=== PATIENT | female | born 2005 | race Caucasian/White ===

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

== ENCOUNTER 2023-04-30 14:59 | Outpatient (REF) | payer MEDICAID, SELFPAY ==
--- OUTSIDE RECORDS SUMMARY | 2023-04-30 15:02 | XMS_ITS | Continuity of Care Document ---
Author Name Unknown Address [address] [place] [address] Phone [facility] Address [address] [place] [address] Phone Care Team Providers Care Plug Making Operator Name Role Phone NADEEN Ascencio Primary Care Provider UNKNOWN Attending Provider Unavailable PRISCILLA Ace Attending Provider [phone] SUZE Arias Attending Provider Unavail able Care Teams Patient Care Team Team Status: Active Member Role Status Giovanni Ascencio NP Primary Care Provider Active Visit Care Team Team Status: Active Member Role Status Giovanni Ascencio NP Primary Care Provider Active UNKNOWN Attending Provider Active Visit Care Team Team Status: Active Member Role Status Giovanni Ascencio NP Primary Care Provider Active Renetta Ace APRN Attending Provider Active Patient Care Team Team Status: Active Member Role Status Giovanni Ascencio NP Primary Care Provider Active SUZE Agosto Attending Provider Active Patient Care Team Team Status: Inactive Member Role Status Giovanni Ascencio UNDERLAY STITCHER Primary Care Provider, Referring Provid er Active Renetta Ace APRN Attending Provider Active Chief Complaint and Reason for Visit Chief Complaint Amb Documentation contraceptive management Allergies, Adverse Reactions, Alerts Allergen Type Severity Reaction Last Updated Verified Status amoxicillin Allergy Moderate Unknown November 11, 2022 1:10pm Ye s Active Bee Stings Allergy Moderate swelling November 11, 2022 2:08pm Ye katy Active Social History Smoking Status Status Start Date End Date Date of Observa tion Unknown if ever smoked Augus t 2022 1:21pm Additional Data Assigned Sex Female Problems Active Problems Medical Problem Onset Date Status PTSD (post-traumatic stress disorder) Active Contraception management Active Menorrhagia Active Nevus Active Anxiety Active Depression Active Eating disorder Active Pruritic rash Active Asthma Active Inactive/Resolved Problems Medical Problem Onset Date Status Nexplanon removal Resolved Suicidal ideation Resolved Medications Medication Status Dose Units Route Directions Qty Days St art Date End Date Instructions Ferrous Sulfate Active 325 MG PO daily October 30, 2022 12:00am Albuterol Sulfate Active 2 PUFF INHALATIO N Q6H October 30, 2022 12:00am Cetirizine Active 10 MG PO daily October 30, 2022 12:00am Escitalopram Oxalate Active 20 MG PO daily October 30, 2022 12:00am Vital Signs Vital Reading Result Reference Range Collection Date/Time Height 67 [in_i] November 11 1:18pm Weight 125.00 [lb_av] November 11, 2022 1:18pm Body Temperature 97.7 [degF] 97.6-99.6 October 1:18pm Heart Rate 95 /min 60-100 November 11 1:18pm Oxygen saturation by Pulse oximetry 98 % 92-100 November 11, 2022 1:18pm BP Systolic 108 mm[Hg] 90-130 November 11 1:18pm BP Diastolic 75 mm[Hg] 70-80 November 11 1:18pm BMI (Body Mass Index) 19.5 kg/m2 November 11, 2022 1:18pm Body mass index (BMI) [Percentile] Per age and sex 21.5 % Normal or healthy weight; 5th to 85th percentile November 11, 2022 1:18pm Insurance Providers Guarantor ANASTASIIA COLVIN Address [address] [place] [address] Contact Info. Home Phone: Payer Policy Id Coverage Id Subscriber's Name Subscriber Id Effective Date Expiration Date [place] [id number] ANASTASIIA COLVIN [id number] Encounters Encounter Location(s) Arrival/Admit Date Discharge/Depart Date Provider(s) Non-patient / Non-visit [facility] October 28, 2022 11:59pm Unknown Non-patient / Non-visit [facility] Nonvisit October 30, 2022 1:45pm Renetta Ace MS APRN Non-patient / Non-visit [facility] Nonvisit October 30, 2022 1:52pm null Departed Physician/Prov ider Office Visit [facility] November 11, 2022 12:49pm November 11, 2022 2:14pm Renetta Ace MS APRN Plan of Treatment Future Tests Future scheduled test information is unavailable Pending Tests Pending diagnostic test information is unavailable Future Visits Future appointment information is unavailable Referrals to Other Providers Reason for Referral Referral Start Date Provider Provider Contact Information Provider Address Z30.9 - Encounter for contraceptive management, unspecified October 30, 2022 Renetta Ace MS APRN Work Phone: [address] [address] Future Procedures Future procedure information is unavailable Future Medications Future medication information is unavailable Patient Instructions Patient instructions are unavailable
--- OUTSIDE RECORDS SUMMARY | 2023-04-30 15:02 | XMS_ITS | Continuity of Care Document ---
Author Name Unknown Address [address] [place] [address] Phone [facility] Address [address] [place] [address] Phone Care Team Providers Care Die Maker Bench Stamping Name Role Phone NADEEN Ascencio Primary Care Provider UNKNOWN Attending Provider Unavailable PRISCILLA Ace Attending Provider [phone] SUZE Arias Attending Provider Unavail able Care Teams Patient Care Team Team Status: Active Member Role Status Giovanni Ascencio NP Primary Care Provider Active Patient Care Team Team Status: Active Member Role Status Giovanni Ascencio NP Primary Care Provider Active Renetta Ace APRN Attending Provider Active Visit Care Team Team Status: Active Member Role Status Giovanni Ascencio NP Primary Care Provider Active UNKNOWN Attending Provider Active Visit Care Team Team Status: Active Member Role Status Giovanni Ascencio NP Primary Care Provider Active Renetta Ace APRN Attending Provider Active Visit Care Team Team Status: Active Member Role Status Giovanni Ascencio NP Primary Care Provider Active SUZE Agosto Attending Provider Active Visit Care Team Team Status: Inactive Member Role Status Giovanni Ascencio NP Primary Care Provider, Referring Provid er Active Renetta Ace APRN Attending Provider Active Patient Care Team Team Status: Inactive Member Role Status Giovanni Ascencio NP Primary Care Provider, Referring Provid er Active Renetta Ace APRN Attending Provider Active Chief Complaint and Reason for Visit Chief Complaint Amb Documentation contraceptive management PLACEMENT OF IUD Reason for Visit Contraception manage ment Dysmenorrhea in adolescent Allergies, Adverse Reactions, Alerts Allergen Type Severity Reaction Last Updated Verified Status amoxicillin Allergy Moderate Unknown December 01, 2022 7:56am Yes Active Bee Stings Allergy Moderate swelling December 01, 2022 7:56am Yes Active Social History Smoking Status Status Start Date End Date Date of Observa tion Unknown if ever smoked Galina hoffman 2022 7:56am Observation Status Observation Response Date of Response alcohol intake current November 11 2:46pm Additional Data Assigned Sex Female Problems Active Problems Medical Problem Onset Date Status PTSD (post-traumatic stress disorder) Active Contraception management Active Encounter for screening for infections with a predominantly sexual mode of transmission Active Menorrhagia Active Nevus Active Anxiety Active Depression Active Eating disorder Active Dysmenorrhea in adolescent Activ e Pruritic rash Active Asthma Active Inactive/Resolved Problems [...] to 85th percentile November 11, 2022 1:18pm Height 67 [in_i] December 01, 2022 9:28am Weight 127.00 [lb_av] November 9:28am Body Temperature 98.4 [degF] 97.6-99.6 December 012022 9:28am Heart Rate 78 /min 60-100 December 01, 2022 9:28am Oxygen saturation by Pulse oximetry 98 % 92-100 December 01, 2022 9:28am BP Systolic 110 mm[Hg] 90-130 December 01, 2022 9:28am BP Diastolic 70 mm[Hg] 70-80 December 01, 2022 9:28am BMI (Body Mass Index) 19.8 kg/m2 2022 9:28am Body mass index (BMI) [Percentile] Per age and sex 25.3 % Normal or healthy weight; 5th to 85th percentile December 01, 2022 9:28am Advance Directives Advance Directive Response Recorded Date/ Time Advance Directives No November 11, 2022 2:46pm Insurance Providers Guarantor ANASTASIIA COLVIN Address [address] [place] [place] [id number] Contact Info. Home Phone: Payer Policy Id Coverage Id Subscriber's Name Subscriber Id Effective Date Expiration Date [place] [id number] ANASTASIIA COLVIN [id number] Encounters Encounter Location(s) Arrival/Admit Date Discharge/Depart Date Provider(s) Non-patient / Non-visit [facility] October 28, 2022 11:59pm Unknown Non-patient / Non-visit [facility] Nonvisit October 30, 2022 1:45pm Renetta Ace MS APRN Non-patient / Non-visit [facility] Nonvisit October 30, 2022 1:52pm null Departed Physician/Provi tony Office Visit [facility] Primary Care Ltn - NonRHC November 11, 2022 12:49pm November 11, 2022 2:14pm Renetta Ace MS APRN Departed Physician/Provi tony Office Visit [facility] December 01, 2022 9:23am December 01, 2022 10:13am Renetta Ace MS APRN Registered Referred [facility] December 01, 2022 9:39am Renetta Ace MS APRN Recent Diagnosis Onset Date Contraception management Dysmenorrhea in adolescent Assessments Diagnosis Onset Date Resolution Status Contraception management acu te Dysmenorrhea in adolescent n oneactive Plan of Treatment Author Renetta Ace [facility] Authored November 11, 2022 4: 10pm Pt is here for review of her contraceptive options after she recently had a Nexplanon placed and then removed soon after due to complaints of BTB the whole time she had it in.THe bleeding irregularity resolved after the Nexplanon was taken out. Her LMP was November 02 WN, Heavy, painful. She is here iwth her mom today and is mainly interested in an IUD. We reviewed the available styles of IUDs and the efficacy, potential side effects and the procedure for placement. Pt thinks she would like eeither the Mary or the Kyleena. The longer duration of Mirena is attractive to her, but pt unsure. We will have PA done for all of these. Her cycles are heavy and painful but she mainly wants solid contraception to avoid . Pt reports she is in stable relationship and they do not want until they are and have a home. PT will set up appt for IUD placement during menses. I suggest avoiding coitus for 2 wk before. We will do urine HCG before she has it placed. Encouraged intake of calcium and magnesium. Pre-medicate or the IUD placement with Aleve with a meal. IT is best performed during her cycle. She will set up an appt. We have deferred the exam until the IUD placement date. Future Tests Future scheduled test information is unavailable Pending Tests Test Name Ordered Date Scheduled Date Chlamydia trachomatis DNA (TEE) December 01 9:39am Neisseria gonorrhoeae DNA (TEE) December 01 9:39am Chlamydia Trach/Neisseria December 01, 2022 9: 39am December 01, 2022 9:39am Future Visits Future appointment information is unavailable Referrals to Other Providers Referral information is unavailable Future Procedures Procedure Name Ordered Date Scheduled Date Kyleena IUD December 01, 2022 9:23am Future Medications Future medication information is unavailable Patient Instructions Patient instructions are unavailable
--- OUTSIDE RECORDS SUMMARY | 2023-04-30 15:02 | XMS_ITS | Continuity of Care Document ---
Author Name Unknown Address [address] [place] [address] Phone [facility] Pract[facility] Address [address] [place] [address] Phone Care Team Providers Care Compressed Yeast Supervisor Name Role Phone NADEEN Ascencio Primary Care Provider UNKNOWN Attending Provider Unavailable PRISCILLA Ace Attending Provider Care Teams Patient Care Team Team Status: Active Member Role Status Dates Sun Ascencio , COMMERCIAL RELATIONSHIP MANAGER Primary Care Provider Active Patient Care Team Team Status: Active Member Role Status Dates Sun Ascencio COMMERCIAL RELATIONSHIP MANAGER Primary Care Provider Active UNKNOWN Attending Provider Active Patient Care Team Team Status: Active Member Role Status Dates Sun Ascencio , COMMERCIAL RELATIONSHIP MANAGER Primary Care Provider Active Renetta Ace APRN Attending Provider Active Social History Smoking Status Unknown if ever smoked Additional Data Assigned Sex Female Insurance Providers Guarantor ANASTASIIA COLVIN Address [address] [place] [id number] Contact Info. Home Phone: Payer Policy Id Coverage Id Subscriber's Name Subscriber Id Effective Date Expiration Date [place] [id number] ANASTASIIA COLVIN [id number] Encounters Encounter Location(s) Arrival/Admit Date Discharge/Depart Date Provider(s) Non-patient / Non-visit [facility] October 28, 2022 11:59pm Unknown Non-patient / Non-visit [facility] Nonvisit October 30, 2022 1:45pm Renetta Ace MS APRN Plan of Treatment Future Tests Future scheduled test information is unavailable Pending Tests Pending diagnostic test information is unavailable Future Visits Future appointment information is unavailable Referrals to Other Providers Reason for Referral Referral Start Date Provider Provider Contact Information Provider Address Z30.9 - Encounter for contraceptive management, unspecified October 30, 2022 Renetta Ace , MS AQUATIC DIRECTOR Work Phone: [address] [facility] [address] [facility] [address] Future Procedures Future procedure information is unavailable Future Medications Future medication information is unavailable Patient Instructions Patient instructions are unavailable Hospital Discharge Instructions Ambulatory Orders* Gynecology Referral Time Frame: 1 Week, Location: None Selected
--- OUTSIDE RECORDS SUMMARY | 2023-04-30 15:02 | XMS_ITS | Continuity of Care Document ---
Author Name Unknown Address [address] [place] [address] Phone [facility] Address [address] [place] [address] Phone Care Team Providers Care Stitcher Set Up Operator Automatic Name Role Phone NADEEN Ascencio Primary Care Provider UNKNOWN Attending Provider Unavailable PRISCILLA Ace Attending Provider SUZE Arias Attending Provider Unavail able Care Teams Patient Care Team Team Status: Active Member Role Status Giovanni Ascencio NP Primary Care Provider Active Visit Care Team Team Status: Inactive Member Role Status Giovanni Ascencio DIRECTOR [employer] Primary Care Provider, Referring Provid er Active [...] Amb Documentation contraceptive management PLACEMENT OF IUD LABS Reason for Visit Contraception manage ment Dysmenorrhea in adolescent Allergies, Adverse Reactions, Alerts Allergen Type Severity Reaction Last Updated Verified Status amoxicillin Allergy Moderate Unknown December 01, 2022 7:56am Yes Active Bee Stings Allergy Moderate swelling December 01, 2022 7:56am Yes Active Social History Smoking Status Status Start Date End Date Date of Observa tion Unknown if ever smoked Galina mullerer 2022 7:56am Observation Status Observation Response Date [...] 9:28am BMI (Body Mass Index) 19.8 kg/m2 Sept2022 9:28am Body mass index (BMI) [Percentile] Per age and sex 25.3 % Normal or healthy weight; 5th to 85th percentile December 01, 2022 9:28am Advance Directives Advance Directive Response Recorded Date/ Time Advance Directives No November 11, 2022 2:46pm Insurance Providers Guarantor ANASTASIIA COLVIN Address [address] [place] [id number] Contact Info. Home Phone: Payer Policy Id Coverage Id Subscriber's Name Subscriber Id Effective Date Expiration Date [place] [id number] ANASTASIIA COLVIN [id number] Encounters Encounter Location(s) Arrival/Admit Date Discharge/Depart Date Provider(s) Non-patient / Non-visit [facility] October 28, 2022 11:59pm Unknown Non-patient / Non-visit [facility] Nonvisit October 30, 2022 1:45pm Renetta Ace MS APRN Non-patient / Non-visit [facility] Nonvisit October 30, 2022 1:52pm null Departed Physician/Prov ider Office Visit [facility] Primary Care Ltn - NonRHC November 11, 2022 12:49pm November 11, 2022 2:14pm Renetta Ace MS APRN Departed Physician/Prov ider Office Visit [facility] December 01, 2022 9:23am December 01, 2022 10:13am Renetta Ace MS APRN Departed Referred [facility] December 01, 2022 9:39am December 01, 2022 9:40am Renetta Ace MS APRN Recent Diagnosis Onset Date Contraception management Dysmenorrhea in adolescent Assessments Diagnosis Onset Date Resolution Status Contraception management acu te Dysmenorrhea in adolescent n oneactive Plan of Treatment Author Renetta [facility] Authored November 11, 2022 4: 10pm Pt is here for review of her contraceptive options after she recently had a Nexplanon placed and then removed soon after due to complaints of BTB the whole time she had it in.THe bleeding irregularity resolved after the Nexplanon was taken out. Her LMP was November 02 WNL, Heavy, painful. She is here iwth her [...] Date Chlamydia trachomatis DNA (TEE) December 01 023 9:39am Neisseria gonorrhoeae DNA (TEE) December 01 023 9:39am Chlamydia Trach/Neisseria December 01, 2022 9: 39am December 01, 2022 9:39am Future Visits Future appointment information is unavailable Referrals to Other Providers Referral information is unavailable Future Procedures Future procedure information is unavailable Future Medications Future medication information is unavailable Patient Instructions Patient instructions are unavailable
--- OUTSIDE RECORDS SUMMARY | 2023-04-30 15:02 | XMS_ITS | Continuity of Care Document ---
Author Name Unknown Address [address] [place] [address] Phone [facility] Practices Address [address] [place] [address] Phone Care Team Providers Care Lan Manager Name Role Phone NADEEN Ascencio Primary Care Provider PRISCILLA Ace Attending Provider Care Teams Patient Care Team Team Status: Active Member Role Status Giovanni Ascencio NP Primary Care Provider Active Visit Care Team Team Status: Inactive Member Role Status Giovanni Ascencio NP Primary Care Provide r, Referring Provider Active Start: December 01, 2022 End: December 01, 2022 Renetta Ace APRN Attending Provider Active Start: December 01, 2022 End: December 01, 2022 Visit Care Team Team Status: Inactive Member Role Status Giovanni Ascencio NP Primary Care Provide r, Referring Provider Active Start: December 01, 2022 End: December 01, 2022 Renetta Ace APRN Attending Provider Active Start: December 01, 2022 End: December 01, 2022 Patient Care Team Team Status: Inactive Member Role Status Giovanni Ascencio NP Primary Care Provide r, Referring Provider Active Start: January 19, 2023 End: January 19, 2023 Renetta Ace APRN Attending Provider Active Start: January 19, 2023 End: January 19, 2023 Chief Complaint and Reason for Visit Chief Complaint PLACEMENT OF IUD LABS Follow Up Reason for Visit Contraception manage ment Dysmenorrhea in adolescent [id number] Allergies, Adverse Reactions, Alerts Allergen Type Severity Reaction Last Updated Verified Status amoxicillin Allergy Moderate Unknown January 19, 2023 8:14am Y es Active Bee Stings Allergy Moderate swelling January 19, 2023 8:14am Y es Active Social History Smoking Status Status Start Date End Date Date of Observa tion Unknown if ever smoked 2022 7:56am Observation Status Observation Response Date of Response alcohol intake current November 11 2:46pm Additional Data Assigned Sex Female Problems Active Problems Medical Problem Onset Date Status Encounter for insertion of p rogestin-releasing intrauterine contraceptive device (IUD) Active PTSD (post-traumatic stress disorder) Active Contraception management [...] art Date End Date Instructions Ferrous Sulfate Disconti nued 325 MG PO daily October 30, 2022 12:00am Octobe r 2022 9:02am Albuterol Sulfate Active 2 PUFF INHALAT ION Q6H October 30, 2022 12:00am Cetirizine Active 10 MG PO daily October 30, 2022 12:00am Escitalopram Oxalate Active 20 MG PO daily October 30, 2022 12:00am Relevant Diagnostic Tests and/or Laboratory Data Laboratory Results Test Date/Time Result Interpretation Reference Range Result Comment Performing Site Urine Test December 01, 2022 9:16am Negative Chlamydia trachomatis DNA (TEE) December 01, 2022 9:39am Negative Negative [facility] [id number] [facility] [address] Neisseria gonorrhoeae DNA (TEE) December 01, 2022 9:39am Negative Negative Performed at: - [facility] [address] [id number] Director: Ifrah Go MD, Phone: [phone] [facility] [id number] [address] Diagnostic Imaging Reports Author Renetta Ace [facility] Practices January 19, 2023 9:30am Report Date/Time January 19, 2023 9 :06am [address] [address] Gynecology Clinic Note 01/19/23 Patient Name: ANASTASIIA COLVIN Date of : 2005 Age: 17 F Record #: [id number] Acct: [id number] Loc: [email or web address] Visit Provider: Renetta Ace MS, SCHOOL COUNSELLOR Assessment and Plan (1) IUD surveillance: Z30.431 - Encounter for routine checking of intrauterine contraceptive device Piper presents for routine post IUD insertion follow up with Desirae placed 11/2322. She is feeling well, having her period currently that is curb hop than usual and less crampy. She denies unusual discharge, pelvic pain, unusual bleeding, fever, or dyspareunia. The IUD strings are visible and at length expected. There is no cervical tenderness or uterine tenderness. No pelvic masses. Pt advised to follow up in 1 yr or sooner if she has any concerns. Patient Details 2 Height 5 ft 7 in 01/19/23 Weight 125 lb 01/19/23 Body Mass Index (BMI) 19.5 01/19/23 History of Present Illness Follow Up Here for IUD follow up today. Periods started 2 days ago and is curb hop and not as crampy. No pain with sex. No unusual discharge. Sick with sinus congestion, infection but this has cleared now. No symptoms for 1 week now.No fever then. Had headache with it -but no fever. Denies any pelvic pain. Using curb hop tampon than had to use before IUD placement. Intake Visit reasons: Follow Up Patient type: Established Loss Prevention Manager present: no Patient : No Is this an annual exam visit?: No Is this a post-op follow-up visit?: No Fall Risk assessment done in last 365 days?: Yes Is patient in pain?: No Any recent ER or hospitalizations since last visit?: No Allergies/Adverse Reactions amoxicillin Allergy (Intermediate, Verified 01/19/23 08:14) Unknown Bee Stings Allergy (Intermediate, Verified 01/19/23 08:14) swelling Home Medications albuterol sulfate 90 mcg/actuation aerosol inhaler 2 puff inhalation Q6H PRN 10/30/22 [History Confirmed 01/19/23] cetirizine 10 mg tablet 10 mg PO DAILY PRN 10/30/22 [History Confirmed 01/19/23] escitalopram oxalate 20 mg tablet 20 mg PO DAILY 10/30/22 [History Confirmed 01/19/23] Vital Signs 3 Quality Provider Reviewed Vital Signs? Yes 01/19/23 08:57 BMI Screening normal limits 01/19/23 08:57 Vital Signs Height 5 ft 7 in 01/19/23 08:57 Weight 125 lb 01/19/23 08:57 Body Mass Index (BMI) 19.5 01/19/23 08:57 Temperature 98.2 F 01/19/23 08:57 Pulse/Heart Rate 93 01/19/23 08:57 Blood Pressure 115/70 01/19/23 08:57 O2 Sat by Pulse Oximetry 100 01/19/23 08:57 Past Patient History Active Problems (Updated 01/19/23 @ 09:27 by Renetta Ace APRN) IUD surveillance Dysmenorrhea in adolescent Menorrhagia (Acute) Contraception management (Acute) PTSD (post-traumatic stress disorder) (Acute) Eating disorder (Acute) Anxiety (Acute) Depression (Acute) Asthma (Acute) Nevus (Acute) Pruritic rash (Acute) Medical History (Updated 01/19/23 @ 09:27 by Renetta Ace APRN) Encounter for insertion of progestin-releasing intrauterine contraceptive device(IUD) Encounter for screening for infections with a predominantly sexual mode of transmission Nexplanon removal 10/01/2022 [facility] Patty Steele Suicidal ideation Social History Advance Directives: No Highest Education Level: completed high school Current Work Situation: not working Previous Workplace Exposure?: chemicals, dust and smoke Current Living Situation: Steady place to live Issues Where Currently Live?: no issues Pets/Animals Owned or Exposed: Yes Lives With: other Feels Isolated: sometimes Seatbelt Use?: always Trouble Getting to Appts/Work/Store Due to Transportation?: No Legal Issues Interfering with Health or Healthcare?: No Worried Food Would Run Out in Last Year?: No Food Bought Didn't Last and No Money to Get More in Last Yr?: No Hard Paying for Basics(food/housing/heat/medical care/meds)?: No Tobacco Use: never Second Hand Exposure: Yes Alcohol Intake: current Substance Use: never Exercise regularly?: No Hearing problems?: No Vision problems?: Yes Difficulty with: no difficulties w/ADLs Need help from others for: no help needed for IADLs Help reading?: No Well balanced Diet: about half the time Orientation: - Identity: - SDOH RESULTS: *sometimes feels isolated Female Reproductive History Age of Menarche: 10 Reported LMP: definite (NOVEMBER 02 2022 lasts about 1 wk.) - Date: November 27 2022 Symptoms since LMP: No Rash or viral illness since last menstrual period: No Period: regular Duration of menses: 3-5 days Type of flow: mild Discomfort with menses: moderate control method: none (Nexplanon was removed by her provider after just a couple months. BTB) History of Pap Smear: N/A History of colposcopy: No History 2 0 Para Full term Premature AB induced AB spontaneous Multiple births Ectopics Living Review of Systems per history of present illness Focused visit today. IUD follow up for Kyleena Placed on 12/19/22, routine. No concerns. Constitutional DENIES: chills, fever(s), headache(s) and malaise HENMT DENIES: dizziness Cardiovascular DENIES: dyspnea Respiratory DENIES: cough and dyspnea Gastrointestinal DENIES: abdominal pain, change in bowel habits and cramping Genitourinary DENIES: abnormal vaginal bleeding, oliguria, dyspareunia, pelvic pain, sexual dysfunction and vaginal discharge single partner Neurologic DENIES: dizziness and headache(s) Physical Examination Constitutional Orientation: alert General: no acute distress Nutritional Appearance: lean Limitations: none Skin Pale complexion. Pt is taking MVI. General: normal, no jaundice, pallor and no rashes noted Hair: normal Neck Neck: normal visual inspection Thyroid: thyroid normal Lymphatic: no lymphadenopathy noted Respiratory Effort and Inspection: normal respiratory effort Auscultation: clear to auscultation bilaterally Cardiovascular Rate: regular rate Rhythm: regular rhythm Gastrointestinal Scaphoid, NT Neg LSKK No masses. Palpation: normal, no guarding, no masses, no rebound tenderness, soft and nontender Genitourinary General: bladder normal to palpation External: normal exam and normal external appearance Urethra: normal appearance of the urethra and normal palpation Vagina: normal exam (tampon removed for exam. ), vaginal bleeding (menses started 01/17/23) and nontender Cervix: normal exam, normal palpation, nontender, nulliparous and IUD string seen Uterus: normal exam, consistency normal, uterine size normal and non-tender Adnexa: no masses and non-tender Neurological General: alert Coding Level of Care Code Established Pt OV, EST. TIME BASED, 20-29 MIN Total minutes spent (including non [id number] time) on DOS: 20 Patient Type Established History Expanded Problem Focused Exam Expanded Problem Focused Medical Decision Making Low Complexity Diagnoses IUD surveillance Z30.431 Recorded by: Renetta Ace MS, PRISCILLA <Electronically signed by Renetta Ace APRN> 01/19/23 [id number] CC: Sun Ascencio NP ~ Vital Signs Vital Reading Result Reference Range Collection Date/Time Height 67 [in_i] December 01, 2022 9:28am [...] to 85th percentile December 01, 2022 9:28am Height 67 [in_i] January 19, 8:57am Weight 125.00 [lb_av] January 19, 2023 8:57am Body Temperature 98.2 [degF] 97.6-99.6 December 8:57am Heart Rate 93 /min 60-100 January 19, 2 023 8:57am Oxygen saturation by Pulse oximetry 100 % 92-100 January 19, 2023 8:57am BP Systolic 115 mm[Hg] 90-130 January 19, 2 023 8:57am BP Diastolic 70 mm[Hg] 70-80 January 19, 2 023 8:57am BMI (Body Mass Index) 19.5 kg/m2 2022 8:57am Body mass index (BMI) [Percentile] Per age and sex 21.3 % Normal or healthy weight; 5th to 85th percentile January 19, 2023 8:57am Advance Directives Advance Directive Response Recorded Date/ Time Advance Directives No November 11, 2022 2:46pm Insurance Providers Guarantor ANASTASIIA COLVIN Address [address] [place] [address] Contact Info. Home Phone: Payer Policy Id Coverage Id Subscriber's Name Subscriber Id Effective Date Expiration Date [place] [id number] ANASTASIIA COLVIN [id number] Encounters Encounter Location(s) Arrival/Admit Date Discharge/Depart Date Provider(s) Departed Physician/Prov ider Office Visit [facility] December 01, 2022 9:23am December 01, 2022 10:13am Renetta Ace MS APRN Departed Referred [facility] December 01, 2022 9:39am December 01, 2022 9:40am Renetta Ace MS APRN Departed Physician/Prov ider Office Visit [facility] January 19, 2023 8:43am January 19, 2023 9:25am Renetta Ace MS APRN Recent Diagnosis Onset Date Contraception management Dysmenorrhea in adolescent [id number] Assessments Diagnosis Onset Date Resolution Status Contraception management acu te Dysmenorrhea in adolescent n oneactive [id number] noneacti ve [id number] noneactive Plan of Treatment Author Renetta Ace [facility] Authored December 02, 2022 9:13am Following informed consent, Kyleena IUD was placed without difficulty. Pt tolerated well. Removal in 5 yrs reviewed. 6 wk check advised. Take home sheet reviewed with the pt to call if pain, fever, chills, discharge, abnormal bleeding or other concerns. Urine sent for CT/NG screening. No evidence of abnormal discharge or STIs on exam. As noted. Pt may expect that the Kyleena IUD will likely lessen her menstrual flow and cramping associated with her cycle will gradually improve. Pt advised to use NSAID for cramping associated with the IUD placement which may last 1-3 days on average. If any acute pain, pt to call. As noted. Urine HCG negative. IUD placed today after discussion and informed consent about risks, benefits, side effects and duration of efficacy for her chosen method. Future Tests Future scheduled test information is unavailable Pending Tests Pending diagnostic test information is unavailable Future Visits Future appointment information is unavailable Referrals to Other Providers Referral information is unavailable Future Procedures Future procedure information is unavailable Future Medications Future medication information is unavailable Patient Instructions Patient instructions are unavailable
--- OUTSIDE RECORDS SUMMARY | 2023-04-30 15:02 | XMS_ITS | Continuity of Care Document ---
Author Name Unknown Address [address] [place] [address] Phone [facility] Practices Address [address] [place] [address] Phone Care Team Providers Care Body Former Name Role Phone NADEEN Ascencio Primary Care Provider [phone] UNKNOWN Attending Provider Unavailable PRISCILLA Ace Attending [...] Status: Inactive Member Role Status Giovanni Ascencio DESIGN STUDIO CONSULTANT Primary Care Provider, Referring Provid er Active Renetta Ace APRN Attending Provider Active Chief Complaint and Reason for Visit Chief Complaint Amb Documentation contraceptive management Reason for Visit Contraception manage ment Dysmenorrhea in adolescent Allergies, Adverse Reactions, Alerts Allergen Type Severity Reaction Last Updated Verified Status amoxicillin Allergy Moderate Unknown November 11, 2022 1:10pm Ye s Active Bee Stings Allergy Moderate swelling November 11, 2022 2:08pm Ye s Active Social History Smoking Status Status Start Date End Date Date of Observa tion Unknown if ever smoked Augus t 2022 2:46pm Observation Status Observation Response Date of Response [...] to 85th percentile November 11, 2022 1:18pm Advance Directives Advance Directive Response Recorded Date/ Time Advance Directives No November 11, 2022 2:46pm Insurance Providers Guarantor ANASTASIIA COLVIN Address [address] [facility] [address] Contact Info. Home Phone: Payer Policy Id Coverage Id Subscriber's Name Subscriber Id Effective Date Expiration Date [place] [id number] ANASTASIIA COLVIN [id number] Encounters Encounter Location(s) Arrival/Admit Date Discharge/Depart Date Provider(s) Non-patient / Non-visit [facility] October 28, 2022 11:59pm Unknown Non-patient / Non-visit [facility] Nonvisit October 30, 2022 1:45pm Renetta Ace MS APRN Non-patient / Non-visit [facility] Nonvisit October 30, 2022 1:52pm null Departed Physician/Prov ider Office Visit [facility] November 11, 2022 12:49pm November 11, 2022 2:14pm Renetta Ace MS APRN Recent Diagnosis Onset Date Contraception management Dysmenorrhea in adolescent Assessments Diagnosis Onset Date Resolution Status Contraception management acu te Dysmenorrhea in adolescent n oneactive Plan of Treatment Author Renetta Ace [facility] Authored November 11, 2022 4: 04pm Pt is here for review of her contraceptive options after she recently had a Nexplanon placed and then removed soon after due to complaints of BTB the whole time she had it in.THe bleeding irregularity resolved after the Nexplanon was taken out. Her LMP was November 02, Heavy, painful. She is here iwth her [...] until they are and have a home. Encouraged intake of calcium and magnesium. Pre-medicate [...] Date Provider Provider Contact Information Provider Address Z30.178 - Encounter for insertion of intrauterine contraceptive device November 11, 2022 Renetta Ace MS APRN Work Phone: [address] [place] [address] [address] [facility] [address] Future Procedures Future procedure information is unavailable Future Medications Future medication information is unavailable Patient Instructions Patient instructions are unavailable Hospital Discharge Instructions Ambulatory Orders* IUD Referral Location: None Selected
--- OUTSIDE RECORDS SUMMARY | 2023-04-30 15:02 | XMS_ITS | Continuity of Care Document ---
Author Name Unknown Organization [facility] Ambulatory Clinics Address [address] [place] [address] Encounter [facility] NBR [id number] Date(s): 03/29/23 - 03/29/23 [facility] Ambulatory Clinics [address] [place], [place] [address] Encounter Diagnosis Stress reaction(Discharge Diagnosis) - 03/29/23 Discharge Disposition: Home or Self Care Attending Physician: SKYE Laura Admitting Physician: SKYE Laura Allergies, Adverse Reactions, Alerts Substance Reaction Severity Status amoxicillin Unknown Active Assessment and Plan Future Scheduled Tests Laboratory* Urinalysis Dipstick Only 04/08/22 Functional Status 03/29/23 Other exposure to Infectious Disease Non e Medications AZO Cranberry Gummies 0 Refill(s) Start Date: 04/08/22 Status: Ordered cetirizine 10 mg oral tablet 0 Refill(s) Start Date: 03/29/23 Status: Ordered escitalopram 20 mg oral tablet 0 Refill(s) Start Date: 03/29/23 Status: Ordered metroNIDAZOLE 1.3% vaginal gel with applicator 1 lucio, VAG, every day at bedtime, # 5 g, 0 Refill(s), Pharmacy: [facility] #[id number] Start Date: 04/08/22 Stop Date: 04/13/22 Status: Ordered PROzac 10 mg oral capsule 10 mg = 1 cap, Oral, Daily, # 30 cap, 1 Refill(s), Pharmacy: [id number] Start Date: 05/14/22 Status: Ordered Ventolin HFA 90 mcg/inh inhalation aerosol 0 Refill(s) Start Date: 03/29/23 Status: Ordered Problem List Condition Confirmation Course Effective Dates Status Health St atus Informant Anxiety Confirmed Active PTSD (post-traumatic stress disorder) Confirmed Active Vital Signs Most recent to oldest [Reference Range]: 1 Temperature Tympanic [36.6-38.1 Deg C] 3 7.2 Deg C (03/29/23 4:08 PM) Peripheral Pulse Rate [60-100 bpm] 70 bp m (03/29/23 4:08 PM) Respiratory Rate [12-24 br/min] 17 br/mi n (03/29/23 4:08 PM) Blood Pressure [90-140/60-90 mmHg] 106/6 8mmHg (03/29/23 4:08 PM) Mean Arterial Pressure, Cuff [70-110 mmH g] 81 mmHg (03/29/23 4:08 PM) Weight 58.97 kg (03/29/23 4:08 PM) Weight Measured (lbs) 130.006 lb (03/29/23 4:08 PM) Weight Dosing 58.970 kg (03/29/23 4:08 PM) Weight Percentile 53.12 1 (03/29/23 4:08 PM) 1Result Comment: ^~:!Percentile Source -[facility] Social History Social History Type Response Tobacco Never tobacco user T obacco Use:. Sex Physician Outpatient Note * SKYE Laura: PERFORM Event Display: Office Clinic Note Physician Authored Date: [id number] ANASTASIIA COLVIN :2005 Age:17 years Sex:Female Visit Date:03/29/2023 Chief Complaint lightheaded, fatigue and disorientated for the last hour. pt states these episodes happen weekly usually when she is at work History of Present Illness Patient is having tunnel vision like symptoms only at work and only after periods of stress. ??She does not get these at home. ??Started several months ago. ??She started her new job 3 months ago.?? Intermittently 1-2 times per week. ??Usually associated with bilateral temporal headache prior.?? Not worst headache of life. ??No associated nausea vomiting or diarrhea. ??Symptoms last anywhere from10 to 20 minutes.?? No recent cough cold or flu symptoms. ??No head injury or head trauma.?? Is currently stable on Lexapro. ??Works with a counselor. Physical Exam Vitals & Measurements T:??37.2?C ??(Tympanic)?? HR:??70??(Peripheral)?? RR:??17?? BP:??106/68?? SpO2:??100%?? WT:??58.97??kg?? WT:??53.12??(Percentile)?? Well-appearing no acute distress alert and oriented x 3. ??Normal distal sensation and motor function answers my questions properly good short-term long- term recall. ??Good cognitive functioning. ??Pupils are reactive. ??Neck supple nontender. ??Heart regular rhythm. ??Abdomen soft nontender. ??Lungs clear to auscultation bilateral. Assessment/Plan 1.??Stress reaction??F43.0 Suspect this is stress reaction with anxiety. ??No??physical findings on exam today. ??Normal vitalsigns. ??Recommend continued work with counselor. Patient Instructions Verbal instructions per patient request. Problem List/Past Medical History Ongoing Anxiety PTSD (post-traumatic stress disorder) Historical No qualifying data Medications AZO Cranberry Gummies cetirizine 10 mg oral tablet escitalopram 20 mg oral tablet metroNIDAZOLE 1.3% vaginal gel with applicator, 1 lucio, Vaginal, every night at bedtime PROzac 10 mg oral capsule, 10 mg= 1 cap, Oral, Daily, 1 refills Ventolin HFA 90 mcg/inh inhalation aerosol Allergies amoxicillin Social History Electronic Cigarette/Vaping Electronic Cigarette Use: Never. Tobacco Never tobacco user Tobacco Use:. Electronically Signed on 03/29/23 04:35 PM SKYE Laura
[2023-05-01 15:41] LABS: Chlamydia Result Negative (Negative); GC Result Negative (Negative)
== END 2023-04-30 15:00 | disposition home or self-care (01) ==
LOC: NCHCN 14:59
PROVIDERS: PCP Nurse Practitioner Family; Visit Provider Nurse Practitioner Family
DX: N76.0 Acute vaginitis (principal)
CPT/HCPCS: 87491; 87591; 87480; 87510; 87660

== ENCOUNTER 2023-06-21 16:46 | Outpatient (REF) | payer MEDICAID, SELFPAY ==
[2023-06-21 20:10] LABS: HCT 34.9 % (36.0-46.0); HGB 11.5 g/dL (11.2-15.7); MCH 32.4 pg (27.0-33.0); MCV 98 fL (80-95); Platelet Count 310 10^3/uL (130-400); RBC 3.55 10^6/uL (3.93-5.22); RDW 12.6 % (11.7-14.6); RDW-SD 45.4 fL; WBC 4.13 10^3/uL (4.4-10.8)
[2023-06-21 20:25] LABS: Anion Gap 6.3 mmol/L (3-11); BUN 8 mg/dL (7-18); CO2 29.7 mmol/L (21.0-32.0); CREATININE 0.6 mg/dL (0.55-1.02); Calcium 8.6 mg/dL (8.5-10.1); Chloride 103 mmol/L (98-107); Glucose 88 mg/dL (74-106); Sodium 139 mmol/L (136-145); TSH 1.83 uIU/Ml (0.36-3.74)
[2023-06-21 20:29] LABS: Hemoglobin A1C 5.1 % (<5.7)
== END 2023-06-21 16:47 | disposition home or self-care (01) ==
LOC: NCHCN 16:46
PROVIDERS: PCP Nurse Practitioner Family; Visit Provider Nurse Practitioner Family
DX: R55 Syncope and collapse (principal)
CPT/HCPCS: 80048; 85027; 83036; 84443

== ENCOUNTER 2023-08-17 16:10 | Outpatient (REF) | payer MEDICAID, SELFPAY ==
[2023-08-17 18:49] LABS: ESR 3 mm/hr (0-20)
[2023-08-17 18:57] LABS: Iron 49 ug/dL (50-170); Total Iron Binding Capacity 342 ug/dL (250-450); Transferrin Sat 14 % (15-50)
[2023-08-17 19:07] LABS: ALT 22 U/L (14-59); AST 15 U/L (15-37); Alkaline Phosphatase 48 U/L (46-116); Anion Gap 10.4 mmol/L (3-11); BUN 10 mg/dL (7-18); Bilirubin, Total 0.5 mg/dL (0.2-1.0); CO2 27.6 mmol/L (21.0-32.0); CREATININE 0.6 mg/dL (0.55-1.02); Calcium 8.5 mg/dL (8.5-10.1); Chloride 103 mmol/L (98-107); Ferritin 60 ng/mL (8-252); Glucose 86 mg/dL (74-106); Potassium 4.2 mmol/L (3.5-5.1); Sodium 141 mmol/L (136-145); Total Protein 6.9 g/dL (6.4-8.2)
[2023-08-23 12:22] LABS: IgA 189 mg/dL (85-499); Interpretation (See Note); Tissue Transglutaminase IgA <4.0 CU (<20.0)
== END 2023-08-17 16:11 | disposition home or self-care (01) ==
LOC: NCHCN 16:10
PROVIDERS: PCP Nurse Practitioner Family; Visit Provider Nurse Practitioner Family
DX: K52.9 Noninfective gastroenteritis and colitis, unspecified (principal); R89.8 Other abnormal findings in specimens from other organs, systems and tissues; R79.89 Other specified abnormal findings of blood chemistry
CPT/HCPCS: 80053; 82784; 83516; 85652; 82728; 83540; 83550

== ENCOUNTER 2023-08-18 15:54 | Outpatient (REF) | payer MEDICAID, SELFPAY ==
[2023-08-25 21:26] LABS: Lactoferrin, Qt, Stool <6.25 mcg/mL (<7.25)
== END 2023-08-18 15:55 | disposition home or self-care (01) ==
LOC: NCHCN 15:54
PROVIDERS: PCP Nurse Practitioner Family; Visit Provider Nurse Practitioner Family
DX: K52.9 Noninfective gastroenteritis and colitis, unspecified (principal)
CPT/HCPCS: 83631

== ENCOUNTER 2024-01-03 17:30 | Outpatient (REF) | payer MEDICAID, SELFPAY ==
--- OUTSIDE RECORDS SUMMARY | 2024-01-03 17:32 | XMS_ITS | Referral Summary ---
Author Organization [facility] Address [address] [place] [address] Care Team Providers Care Band Instrument Maker Name Role Phone Unavailable Primary Care Provider Unavailabl e Social History Tobacco Use Types Packs/Day Years Used Date Smoking Tobacco: Never Assessed Sex and Gender Information Value Date Recorded Sex Assigned at Not on file Gender Identity Not on file Sexual Orientation Not on file Plan of Treatment Not on file Procedures Procedure Name Priority Date/Time Associated Diagnosis Comments HEPATITIS C AB W REFLEX TO HCV RNA BY PCR Routine 08/20/2022 15:00 EDT from Last 3 Months or Most Recently Relevant to Health Maintenance Results * HEPATITIS C AB W REFLEX TO HCV RNA BY PCR (08/20/2022 15:00 EDT) Hep C Antibody Negative Negative 08/24/2022 10:17 EDT [facility] Blood VENOUS BLOOD / Unknown 08/20/2022 15:00 EDT 08/21/2022 19:25 EDT Provider Outr Resulting Lab CHEMISTRY & BLOOD GAS ORDERABLES [facility] [address] [place] [address] from Last 3 Months or Most Recently Relevant to Health Maintenance
--- OUTSIDE RECORDS SUMMARY | 2024-01-03 17:32 | XMS_ITS | Clinical Summary ---
Author Organization [facility] Address [address] [place] [address] Care Team Providers Care Assembler Clip On Sunglasses Name Role Phone Unavailable Primary Care Provider Unavailabl e Social History Tobacco Use Types Packs/Day Years Used Date Smoking Tobacco: Never Assessed Sex and Gender Information Value Date Recorded Sex Assigned at Not on file Gender Identity Not on file Sexual Orientation Not on file Plan of Treatment Health Maintenance Due Date Last Done Comments Hepatitis B Vaccine (1 of 3 - 19+ 3-dose series) 04/07 COVID-19 Vaccine (2022- season) 2022 Hepatitis C Screen Completed 08/20/2022 Procedures Procedure Name Priority Date/Time Associated Diagnosis Comments HEPATITIS C AB W REFLEX TO HCV RNA BY PCR Routine 08/20/2022 15:00 EDT from Last 3 Months or Most Recently Relevant to Health Maintenance Results * HEPATITIS C AB W REFLEX TO HCV RNA BY PCR (08/20/2022 15:00 EDT) Hep C Antibody Negative Negative 08/24/2022 10:17 EDT [facility] Blood VENOUS BLOOD / Unknown 08/20/2022 15:00 EDT 08/21/2022 19:25 EDT Provider Outr Resulting Lab CHEMISTRY & BLOOD GAS ORDERABLES [facility] [address] [place] [address] from Last 3 Months or Most Recently Relevant to Health Maintenance
--- OUTSIDE RECORDS SUMMARY | 2024-01-03 17:32 | XMS_ITS | Encounter Summary ---
Author Organization [facility] Address [address] [place] [address] Care Team Providers Care Revenue Manager Name Role Phone Unavailable Primary Care Provider Unavailabl e Encounter Details Date Type Department Care Team (Late st Contact Info) Description 08/18/2023 Lab Requisition [facility] Pathology & Laboratory Medicine - [facility] [address] [place] [address] Outr Resulting Lab, Provider Social History Tobacco Use Types Packs/Day Years Used Date Smoking Tobacco: Never Assessed Sex and Gender Information Value Date Recorded Sex Assigned at Not on file Gender Identity Not on file Sexual Orientation Not on file documented as of this encounter Plan of Treatment Not on file documented as of this encounter Procedures Procedure Name Priority Date/Time Associated Diagnosis Comments CELIAC DISEASE PANEL Routine 08/17/2023 15:30 EDT documented in this encounter Results * CELIAC DISEASE PANEL (08/17/2023 15:30 EDT) Tissue Transglutaminase Antibody, IgA <4.0 <20.0 CU 08/23/2023 12:17 EDT [facility] Comment: A negative result may be due to IgA deficiency and does not rule out celiac disease. Negative: <20.0 CU Weak Positive: 20.0-30.0 CU Positive: >30.0 CU Results were obtained with the [employer] QUANTA Flash h-tTG IgA chemiluminescent immunoassay. Values obtained with different manufacturers' assay methods may not be used interchangeably. IgA 189 85 - 499 mg/dL 08/23/2023 12:17 EDT [facility] Celiac Disease Interpretation Negative Serology. Celiac disease unlikely. Approximately 10% of patients with celiac disease are seronegative. Patients who are already adhering to a gluten-free diet may also be seronegative. If celiac disease is highly clinically suspected, referral to gastroenterology for additional evaluation is recommended. 08/23/2023 12:17 EDT [facility] Blood VENOUS BLOOD / Unknown 08/17/2023 15:30 EDT 08/18/2023 17:32 EDT Provider Outr Resulting Lab IMMUNOLOGY A ND SEROLOGY ORDERABLES [facility] [address] [place], [place] [id number] documented in this encounter Visit Diagnoses Not on filedocumented in this encounter
--- OUTSIDE RECORDS SUMMARY | 2024-01-03 17:33 | XMS_ITS | Encounter Summary ---
Author Organization [facility] Address [address] [place] [id number] Care Team Providers Care Industrial Controls Technician Name Role Phone Unavailable Primary Care Provider Unavailabl e Encounter Details Date Type Department Care Team (Late st Contact Info) Description 08/20/2022 Lab Requisition [facility] Pathology & Laboratory Medicine - [facility] [address] [place], [place] [address] Outr Resulting Lab, Provider Social History Tobacco [...] Procedure Name Priority Date/Time Associated Diagnosis Comments HIV 1/2 ANTIGEN AND ANTIBODY, 4TH GENERATION Routine 08/20/2022 15:00 EDT documented in this encounter Results * HIV 1/2 ANTIGEN AND ANTIBODY, 4TH GENERATION (08/20/2022 15:00 EDT) HIV 1 and 2 Antibody/p24 Antigen, 4th Generation Negative Negative 08/24/2022 10:30 EDT [facility] Comment:If acute HIV-1 infec tion is suspected in a high risk patient, submit plasma specimen for HIV-1 RNA quantitation test. Blood VENOUS BLOOD / Unknown 08/20/2022 15:00 EDT 08/21/2022 19:25 EDT Narrative [facility] - 08/24/2022 10:30 EDT Fourth Generation assay performed on the Siemens Centaur XPT. Provider Outr Resulting Lab IMMUNOLOGY A ND SEROLOGY ORDERABLES [facility] [address] [place] [address] documented in this encounter Visit Diagnoses Not on filedocumented in this encounter
--- OUTSIDE RECORDS SUMMARY | 2024-01-03 17:33 | XMS_ITS | Encounter Summary ---
Author Organization [facility] Address [address] [place] [id number] Care Team Providers Care Cray Fishing Hand Name Role Phone Unavailable Primary Care Provider Unavailabl e Encounter Details Date Type Department Care Team (Late st Contact Info) Description 08/21/2022 Lab Requisition [facility] Pathology & Laboratory Medicine - [facility] [address] [place] [address] Outr Resulting Lab, Provider Social History Tobacco [...] Procedure Name Priority Date/Time Associated Diagnosis Comments CHLAMYDIA/N. GONORRHOEAE AMPLIFIED NUCLEIC ACID Routine 08/20/2022 14:30 EDT documented in this encounter Results * CHLAMYDIA/N. GONORRHOEAE AMPLIFIED RNA (08/20/2022 14:30 EDT) Neisseria gonorrhoeae Result Negative Negative 08/22/2022 14:27 EDT [facility] Chlamydia trachomatis Result Negative Negative 08/22/2022 14:27 EDT [facility] Swab ENTIRE VAGINA / Unknown 08/20/2022 14:30 EDT 08/21/2022 22:28 EDT Provider Outr Resulting Lab MICROBIOLOGY - GENERAL ORDERABLES [facility] [address] [place] [address] documented in this encounter Visit Diagnoses Not on filedocumented in this encounter
--- OUTSIDE RECORDS SUMMARY | 2024-01-03 17:33 | XMS_ITS | Encounter Summary ---
Author Organization [facility] Address [address] [place] [address] Care Team Providers Care Field Laborer Name Role Phone Unavailable Primary Care Provider Unavailabl e Encounter Details Date Type Department Care Team (Late st Contact Info) Description 08/20/2022 Lab Requisition [facility] Pathology & Laboratory Medicine - [facility] [address] [place], [place] [address] Outr Resulting Lab, Provider Social History Tobacco [...] Procedure Name Priority Date/Time Associated Diagnosis Comments SYPHILIS SEROLOGY Routine 08/20/2022 15: 00 EDT HEPATITIS C AB W REFLEX TO HCV RNA BY PCR Routine 08/20/2022 15:00 EDT documented in this encounter Results * SYPHILIS SEROLOGY (08/20/2022 15:00 EDT) Syphilis Serology Negative Negative 08/24/2022 10:45 EDT [facility] Blood VENOUS BLOOD / Unknown 08/20/2022 15:00 EDT 08/21/2022 19:25 EDT Provider Outr Resulting Lab IMMUNOLOGY A ND SEROLOGY ORDERABLES [facility] [address] [place] [address] * HEPATITIS C AB W REFLEX TO HCV RNA BY PCR (08/20/2022 15:00 EDT) Hep C Antibody Negative Negative 08/24/2022 10:17 EDT [facility] Blood VENOUS BLOOD / Unknown 08/20/2022 15:00 EDT 08/21/2022 19:25 EDT Provider Outr Resulting Lab CHEMISTRY & BLOOD GAS ORDERABLES [facility] [address] [place] [address] documented in this encounter Visit Diagnoses Not on filedocumented in this encounter
--- OUTSIDE RECORDS SUMMARY | 2024-01-03 17:33 | XMS_ITS | Encounter Summary ---
Author Organization [facility] Address [address] [place] [address] Care Team Providers Care Head Of Housekeeping Name Role Phone Unavailable Primary Care Provider Unavailabl e Encounter Details Date Type Department Care Team (Late st Contact Info) Description 04/30/2023 Lab Requisition [facility] Pathology & Laboratory Medicine - [facility] [address] [place] [address] Outr Resulting Lab, Provider Social History Tobacco [...] Comments CHLAMYDIA/N. GONORRHOEAE AMPLIFIED NUCLEIC ACID Routine 04/30/2023 10:00 EST documented in this encounter Results * CHLAMYDIA/N. GONORRHOEAE AMPLIFIED RNA (04/30/2023 10:00 EST) Neisseria gonorrhoeae Result Negative Negative 05/01/2023 15:36 EST [facility] Chlamydia trachomatis Result Negative Negative 05/01/2023 15:36 EST [facility] Swab VAGINAL STRUCTURE / Unknown 04/30/2023 10:00 EST 04/30/2023 21:35 EST Provider Outr Resulting Lab MICROBIOLOGY - GENERAL ORDERABLES [facility] [address] [place] [address] documented in this encounter Visit Diagnoses Not on filedocumented in this encounter
[2024-01-03 19:10] LABS: HCT 38.6 % (36.0-46.0); HGB 13.1 g/dL (11.2-15.7); MCHC 33.9 % (32.0-36.0); MCV 97 fL (80-95); Platelet Count 309 10^3/uL (130-400); RBC 3.97 10^6/uL (3.93-5.22); RDW 11.9 % (11.7-14.6); RDW-SD 42.8 fL; WBC 5.49 10^3/uL (4.4-10.8)
[2024-01-03 19:25] LABS: Iron 100 ug/dL (50-170); Total Iron Binding Capacity 352 ug/dL (250-450); Transferrin Sat 28 % (15-50)
[2024-01-03 19:36] LABS: ALT 21 U/L (14-59); AST 21 U/L (15-37); Albumin 4.1 g/dL (3.4-5.0); Alkaline Phosphatase 49 U/L (46-116); Anion Gap 7.9 mmol/L (3-11); BUN 7 mg/dL (7-18); Bilirubin, Total 0.56 mg/dL (0.2-1.0); CO2 27.1 mmol/L (21.0-32.0); CREATININE 0.7 mg/dL (0.55-1.02); Calcium 9.1 mg/dL (8.5-10.1); Chloride 107 mmol/L (98-107); Ferritin 58 ng/mL (8-252); Glucose 83 mg/dL (74-106); Potassium 4.4 mmol/L (3.5-5.1); Sodium 142 mmol/L (136-145); TSH (W/Ref FT4) 1.23 uIU/mL (0.36-3.74); Total Protein 7.2 g/dL (6.4-8.2)
== END 2024-01-03 17:31 | disposition home or self-care (01) ==
LOC: NCHCN 17:30
PROVIDERS: PCP Nurse Practitioner Family; Visit Provider Nurse Practitioner Family
DX: R53.83 Other fatigue (principal)
CPT/HCPCS: 80053; 85027; 82728; 83540; 83550; 84443

== ENCOUNTER 2025-02-12 19:13 | Outpatient (REF) | payer OTHER, SELFPAY ==
--- NOTE | 2025-02-12 14:15 | PAPFT_PTH ---
PATIENT: Keli Bellamy LOC: [facility] U#:[id number] AGE/SX: 19/F ROOM: RE02/12/[address]: Patty Sung : 2005 BED: DIS: 02/12/2025 SPEC #: [id number] RECD: 02/13/25 12:41 STATUS: LARISSA REJanis #: [id number] KIRA: 02/12/25 14:[address]: Patty Sung [facility] Cytology RECD BY: Sarah Walter ENTERED: 02/13/25 12:41 SP TYPE: PAPFT OTHR DR: Unknown,Unknown Tissues: 1 - CX/ENDOCX FOR PAP SMEARS Procedures: PAP THIN PREP/[facility] Screening Comments: [id number]
== END 2025-02-12 19:14 | disposition home or self-care (01) ==
LOC: NCHCN 19:13
PROVIDERS: Visit Provider Nurse Practitioner Family
DX: Z12.4 Encounter for screening for malignant neoplasm of cervix (principal)
CPT/HCPCS: 88142